=== PATIENT | female | born 1985 | race Caucasian/White ===

== ENCOUNTER → 2017-08-18 | Outpatient (CLI) | payer BC ==
[~2017-08-18] MED LIST: ACE3 PO; AMIT-108 PO; BUP75 PO; CEPH250T5 PO; ENO100I SC; ENOX80DI8 SQ; FLUO40CA76 PO; LABE100T28 PO; LORITAB; MEDR150D IM; NORE0.3522 PO; OMEP-218 PO; PREN-127 PO; PROM25S RC; TOPI15CA18 PO; WAR1 PO; WAR75 PO
--- NOTE | 2017-08-18 14:36 | RADIOLOGY IMAGING REPORT ---
FACILITY: [facility] PATIENT NAME: Kayy Robles : 1985 MR: [id number] V: [id number] EXAM DATE: ORDERING PHYSICIAN: MATTIE SALEH TECHNOLOGIST: Location: [facility] - [place] Patient: Kayy Robles : 1985 Visit/Account:[id number] Date of Sevice: 08/18/2017 VENOUS DOPP LOW LEFT EXTREMITY HISTORY: Edema COMPARISON: None. FINDINGS: Grayscale, duplex and color Doppler interrogation of the left lower extremity deep veins from common femoral vein to proximal calf was completed. The greater saphenous vein in the proximal thigh was blossom luated using similar technique. Common femoral vein - Negative. Femoral vein - Negative. Deep femoral vein - Negative. Popliteal vein - Negative. Visualized deep calf veins - Negative. Popliteal fossa: Negative. Greater saphenous vein in the proximal thigh: Negative. IMPRESSION: Negative left lower extremity venous ultrasound Report Dictated By: Reji Presley at 08/18/2017 2:31 PM Report E-Signed By: Reji Presley at 08/18/2017 2:32 PM WSN:[email or web address]
== END ==
LOC: US 10:40
PROVIDERS: ATTEND Nurse Practitioner Family
DX: R60.0 Localized edema (principal)

== ENCOUNTER → 2018-02-14 | Outpatient (REF) | payer BC | LOC: ZZSTITCHES 14:55 | PROVIDERS: ATTEND Physician Assistant | DX: L03.316 Cellulitis of umbilicus (principal); B96.89 Other specified bacterial agents as the cause of diseases classified elsewhere | CPT/HCPCS: 87071 ==

== ENCOUNTER → 2018-09-22 | Outpatient (CLI) | payer BC ==
[~2018-09-22] MED LIST changes: +IOPAMIDOL 76% 100 ML INFUS BTL 100 ML ONE; +SULF-198 PO
--- NOTE | 2018-09-22 15:43 | RADIOLOGY IMAGING REPORT ---
FACILITY: [facility] - [place] PATIENT NAME: Kayy Robles : 1985 MR: [id number] V: [id number] EXAM DATE: ORDERING PHYSICIAN: JACLYN MATOS TECHNOLOGIST: Location: [facility] [place] Patient: Kayy Robles : 1985 Visit/Account:[id number] Date of Sevice: 09/22/2018 CT ABDOMEN PELVIS W/ CON HISTORY: Abscess since January, leaking and bruising TECHNIQUE: Following administration of IV contrast contiguous axial images acquired through the abdom en/pelvis. Coronal and sagittal reformatting also performed.Dose Lowering Technique One of the following dose optimization techniques was utilized in the performance of this exam: Autom ated exposure control; adjustment of the mA and/or kV according to the patient's size; or use of an i terative reconstruction technique. Specific details can be referenced in the facility's radiology C T exam operational policy. CONTRAST: 75 mL Isovue-[id number] COMPARISON: None. FINDINGS: Visualized lung bases: There is a 2 x 3 mm intrafissural nodule abutting the major fissure on the le ft Hepatobiliary: Negative. Spleen: Negative. Adrenals: Negative. Pancreas: Negative. Kidneys ureters or bladder: Negative. Genitalia: Negative. GI: There is mild diverticulosis of the left-sided the colon although no CT evidence of acute divert iculitis Vessels/spaces/nodes: There Is an incidental retroaortic left renal vein Bones/soft tissues: There is a periumbilical hernia containing fat. There are spondylotic changes o f the thoracal lumbar spine which are most prominent at L4-5 and L5-S1 By history the patient's abscess was along the left lateral aspect of the abdominal wall. Due to ibrahima chapman's very large body habitus the lateral aspects of the abdomen and pelvis were not included in th e [id number] Additional findings: None pertinent. IMPRESSION: Due to patient's large body habitus the lateral aspect of the abdomen and pelvis were not included in the [id number]. By history the patient's abscess was apparently along the left lateral aspect of the abdominal wall which is not visualized Mild diverticulosis of the left-sided the colon Periumbilical hernia containing fat Spondylotic changes of the thoracolumbar spine Report Dictated By: Lyubov Manrique MD at 09/22/2018 3:24 PM Report E-Signed By: Lyubov Manrique MD at 09/22/2018 3:34 PM WSN:[email or web address]
== END ==
LOC: CT 04:00
PROVIDERS: ATTEND Surgery
DX: K57.30 Diverticulosis of large intestine without perforation or abscess without bleeding (principal); K42.9 Umbilical hernia without obstruction or gangrene
CPT/HCPCS: 74177; Q9967